=== PATIENT | female | born 1970 | race Hispanic/Latino ===

== ENCOUNTER 2017-03-18 13:17 | Emergency (ER) | payer OTHER ==
[2017-03-18] MEDS ORDERED: NACL 0.9% 1000 ML 1,000 ML IV ONE (13:48)
[2017-03-18] MEDS ORDERED: ANTIVERT PO ONE (13:48)
[2017-03-18 13:51] VITALS: BP 122/85
--- NOTE | 2017-03-18 13:51 | Emergency Department Report ---
Chief Complaint: Dizziness Stated Complaint: ANXIETY/DIZZINESS/VOMITTING Time Seen by Provider: 03/18/17 13:44 - HPI History of Present Illness: PT c/o dizziness after working out. PT states this has happened before and she has seen GI, [facility], and ENT for this - ROS Review of Systems: pt denies pain pt states her body is numb pt is screaming "oh god" ROS is very limited - Exam Physical Exam: pt writhing around in wheelchair pt c/o the room spinning. MSE screening note: Focused history and physical exam performed. Due to findings the following was ordered: ekg, labs, medication ED Disposition for MSE Condition: Stable
[2017-03-18 15:33] LABS: Basophils % (Auto) 0.3 % (0.0-1.8); Eosinophils % (Auto) 1.4 % (0.0-4.3); Hematocrit 44.5 % (30.3-42.9); Hemoglobin 15.1 gm/dl (10.1-14.3); Mean Corpuscular HGB Conc 34 % (30-34); Mean Corpuscular Hemoglobin 30 pg (28-32); Mean Corpuscular Volume 87 fl (79-97); Platelet Count 260 K/mm3 (140-440); Red Blood Count 5.14 M/mm3 (3.65-5.03)
[2017-03-18 15:58] LABS: Creatine Kinase 45 units/L (30-135); Lipase 23 units/L (13-60)
[2017-03-18 16:20] LABS: Alanine Aminotransferase 13 units/L (7-56); Albumin 4.7 g/dL (3.9-5); Albumin/Globulin Ratio 1.8 %; Alkaline Phosphatase 49 units/L (35-129); Anion Gap 19 mmol/L; Blood Urea Nitrogen 14 mg/dL (7-17); Calcium 9.7 mg/dL (8.4-10.2); Carbon Dioxide 22 mmol/L (22-30); Chloride 99.1 mmol/L (98-107); Glucose 92 mg/dL (65-100); Potassium 4.2 mmol/L (3.6-5.0); Sodium 136 mmol/L (137-145); Total Protein 7.3 g/dL (6.3-8.2)
--- NOTE | 2017-03-19 14:49 | ED Elopement Review ---
ED Pt Elopement review - Results review Lab results: Laboratory Tests 03/18/17 03/18/17 03/18/17 14:39 14:39 14:39 WBC 11.0 RBC 5.14 H Hgb 15.1 H Hct 44.5 H MCV 87 MCH 30 MCHC 34 RDW 13.0 L Plt Count 260 Lymph % (Auto) 10.5 L [place] % (Auto) 4.5 Eos % (Auto) 1.4 Baso % (Auto) 0.3 Lymph # 1.2 [place] # 0.5 Eos # 0.2 Baso # 0.0 Seg Neutrophils % 83.3 H Seg Neutrophils # 9.2 H Sodium 136 L Potassium 4.2 Chloride 99.1 Carbon Dioxide 22 Anion Gap 19 BUN 14 Creatinine 0.5 L Estimated GFR > 60 BUN/Creatinine Ratio 28.00 Glucose 92 Calcium 9.7 Total Bilirubin 1.10 AST 20 ALT 13 Alkaline Phosphatase 49 Total Creatine Kinase 45 Troponin T Total Protein 7.3 Albumin 4.7 Albumin/Globulin Ratio 1.8 Lipase 23 03/18/17 14:39 WBC RBC Hgb Hct MCV MCH MCHC RDW Plt Count Lymph % (Auto) [place] % (Auto) Eos % (Auto) Baso % (Auto) Lymph # [place] # Eos # Baso # Seg Neutrophils % Seg Neutrophils # Sodium Potassium Chloride Carbon Dioxide Anion Gap BUN Creatinine Estimated GFR BUN/Creatinine Ratio Glucose Calcium Total Bilirubin AST ALT Alkaline Phosphatase Total Creatine Kinase Troponin T < 0.010 Total Protein Albumin Albumin/Globulin Ratio Lipase - Call Back decision Pt Call Back Decision: Pt to F/U with PMD
== END 2017-03-18 16:48 | disposition left against medical advice (07) ==
LOC: ED 13:17
DX: F41.9 Anxiety disorder, unspecified (principal); R42 Dizziness and giddiness; R11.10 Vomiting, unspecified; Z53.21 Procedure and treatment not carried out due to patient leaving prior to being seen by health care provider
CPT/HCPCS: 36415; 80053; 82550; 83690; 84484; 85025; 93005; 93010